=== PATIENT | female | born 1970 | race Caucasian/White ===

== ENCOUNTER 2019-05-03 11:34 | Emergency (ER) | payer OTHER ==
[2019-05-03 11:56] LABS: ABSOLUTE EOSINOPHILS # (AUTO) 0.1 10^3/uL (0.0-0.6); ABSOLUTE LYMPHOCYTES (AUTO) 2.2 10^3/uL (0.5-4.7); ABSOLUTE MONOCYTES (AUTO) 0.3 10^3/uL (0.1-1.4); ABSOLUTE NEUT (AUTO) 3.2 10^3/uL (1.7-8.2); BASOPHILS % (AUTO) 0.5 % (0-2); HEMATOCRIT 31.7 % (36.0-47.0); HEMOGLOBIN 10.1 g/dL (12.0-15.5); LYMPHOCYTES % (AUTO) 37.6 % (13-45); MEAN CORPUSCULAR HEMOGLOBIN 24.3 pg (27.0-33.4); MEAN CORPUSCULAR HGB CONC 31.9 g/dL (32.0-36.0); MEAN CORPUSCULAR VOLUME 76 fl (80-97); MONOCYTES % (AUTO) 5.3 % (3-13); PLATELET COUNT 268 10^3/uL (150-450); RED BLOOD COUNT 4.16 10^6/uL (3.72-5.28); RED CELL DISTRIBUTION WIDTH 17.3 % (11.5-14.0); SEGMENTED NEUTROPHILS % (AUTO) 54.6 % (42-78); TOTAL CELLS COUNTED % (AUTO) 100 %; WHITE BLOOD COUNT 5.8 10^3/uL (4.0-10.5)
[2019-05-03 11:58] LABS: APPEARANCE,URINE CLEAR; BILIRUBIN,URINE NEGATIVE (NEGATIVE); COLOR,URINE YELLOW; GLUCOSE, URINE 50 mg/dL (NEGATIVE); KETONES,URINE NEGATIVE (NEGATIVE); LEUKOCYTE ESTERASE,URINE NEGATIVE (NEGATIVE); NITRITE,URINE NEGATIVE (NEGATIVE); PROTEIN,URINE NEGATIVE (NEGATIVE); URINE SPECIFIC GRAVITY 1.021; UROBILINOGEN,URINE NEGATIVE mg/dL (<2.0)
--- NOTE | 2019-05-03 12:06 | ER Document Report ---
ED General - General Chief Complaint: Altered Mental Status Stated Complaint: UNRESPONSIVE Time Seen by Provider: 05/03/19 11:56 Primary Care Provider: SHERRY LEACH MD [ACTIVE STAFF] - 05/03/19 7:00 am (Call to establish primary doctor here, first available appointment to follow-up anemia work-up and diabetes management and pain management.) EDGAR FUENTES MD [COMMUNITY BASED STAFF] - Follow up as needed (Can try either 1 of these numbers for primary care establishment.) Information source: Patient, Relative - Cannot obtain history due to: Altered mental status - [facility] Notes: bibems after sudha rodriguez he was trying to help her to the toilet when she'd seemed unresponsive for a few minutes and then very "out of it". it was unusual she'd need help out of bed he says but she told him she felt weak. he helped her up they walked together and both "stumbled once into bathroom". says she didn't hit her head or anywhere else, but then he got her on the toilet and she was just slumped over. breathing on her own but wouldn't respond to him. both ultimately deny any preceding drug subtance use. she has h/o remote CVA w/ residual hemiparesis, dysarthria. they recently moved here from [place]. she is prescrived vicodin from provider there but says she "doesn't use often". not too long ago actually went to [place] to see the doctor (hasn't est one here yet, since likes that a lot). RNs found a cut straw on her person when gett ing her in gown; they were concerned might be used in snorting substances, says she cuts long straws b/c sometimes clumsy w/ right hand so cuts straws down. pt says she doens' thave any current pain. she remembers wanting to go to [facility] [place]. doens't remember feeling badly.they deny any other history of (near) syncope. no CV disease known. no recent vomiting. has had some loose stools. no melana or blood. no other pain that's new besides chronic back pain. no f/c/s. EMS reported glu wnl vs wnl. drowsy followin commands. - Related Data Allergies/Adverse Reactions: No Known Allergies Allergy (Unverified 05/05/19 12:07) Home Medications: Vicodin 5-300mg Daily. Lisinopril 20mg Daily. HCTZ 12.5mg Daily Past Medical History - Social History Smoking Status: Unknown if Ever Smoked Family History: Reviewed & Not Pertinent Patient has suicidal ideation: No Patient has homicidal ideation: No Review of Systems - Review of Systems Constitutional: See HPI EENT: No symptoms reported Cardiovascular: No symptoms reported Respiratory: No symptoms reported Gastrointestinal: See HPI, Diarrhea. denies: Abdomen distended, Abdominal pain Genitourinary: No symptoms reported Female Genitourinary: No symptoms reported Musculoskeletal: No symptoms reported Skin: No symptoms reported Hematologic/Lymphatic: No symptoms reported Neurological/Psychological: No symptoms reported Physical Exam - Vital signs Vitals: Resp BP 13 122/83 05/03/19 11:36 05/03/19 11:36 - Notes Notes: on arrival arousable to voice, follows commands moving all ext no facial palsy. mild dysarthria clears w/in hour of arrival. no pronator drift, equal automation technologist. stregth hip flexors 5/5, ankle dorsi-plantar flex 5/5, automation technologist 5/5. sensation coordination all grossly intact. Course - Re-evaluation Re-evalutation: 05/11/19 14:55 pt more and more alert. gave 2 l iv LR. all labs wnl. imaging reviewed wnl. initially opioid screen (-), after d/c returned unconfirmed (+)...but during stay was unconfirmed + for amphetamines. no miosis on exam, i still suspected opiate narcosis though agusto initial (-) screen given story. cont to explain some worrisome aspects e.g. straw, and also says that this is usual for pt to sleep into late afternoon every day. I did suspect possible downside of amphetamines. i spoke w/ both of them about opiod/amphet issues. i offered some programs here if she felt it was interfereing w/ her ability to function well. she said it's just been a lot since moving she misses co. promises she'll est pcp here. has insurance as now retired [employer]. observed pt til able to ambulate w/ and ok for d/c. discussed also narcan as safety backup if she thought this was in any way in setting of taking vicodin +/- more opiates from other prescribed or non-prescribed sources she cont to reassure that that's not case. I still offered we are always here to supply resources again b/c i'm worried it could be a problem since i;m seeing you here today. they understand. 05/11/19 14:56 05/11/19 14:57 - Vital Signs Vital signs: Temp Pulse Resp BP Pulse Ox 97.6 F 78 10 L 171/94 H 98 05/03/19 17:05 05/03/19 15:20 05/03/19 17:05 05/03/19 17:05 05/03/19 17:05 - Laboratory Result Diagrams: 05/03/19 11:37 05/03/19 11:37 Laboratory results interpreted by me: 05/03/19 05/03/19 05/03/19 11:37 11:37 11:37 Hgb 10.1 L Hct 31.7 L MCV 76 L MCH 24.3 L MCHC 31.9 L RDW 17.3 H POC Glucose Albumin 3.3 L Urine Glucose (UA) 50 H 05/03/19 11:40 Hgb Hct MCV MCH MCHC RDW POC Glucose 119 H Albumin Urine Glucose (UA) - EKG Interpretation by Me Additional EKG results interpreted by me: 05/03/19 12:05 EKG today is sinus, regular rate 63. Computer corrected QT at 488, my calculation is at 490. No ST elevations depressions QRS is with in normal limits no hypertrophy axis within normal limits Discharge - Discharge Clinical Impression: Syncope and collapse, Anemia Condition: Fair Disposition: HOME, SELF-CARE Additional Instructions: Today your blood count or your hemoglobin was 10.7. Since you have had iron deficiency anemia in the past I will prescribe an iron supplement for you to start taking today but is very important you call a local physician or provider to establish primary care and to follow-up your anemia, your glucose and nicole betes management, pain management and preventative care so someone knows you here locally. I think this is the reason you passed out given it occurred when he jumped up fast and now you are feeling much better after fluids. Your blood count is not low enough to give you a transfusion it should start to get better with iron supplementation but again you need to ensure that this is only an issue with needing some iron with your primary care doctor. Return immediately if you have any blood or black stools any passing out or near passing out, abdominal pain or other pain, or other concerns. Prescriptions: Ferrous Sulfate [Slow Release Iron] 140 mg PO BID 14 Days #28 tablet.er Referrals: SHERRY LEACH MD [ACTIVE STAFF] - 05/03/19 7:00 am (Call to establish primary doctor here, first available appointment to follow-up anemia work-up and diabetes management and pain management.) EDGAR FUENTES MD [COMMUNITY BASED STAFF] - Follow up as needed (Can try either 1 of these numbers for primary care establishment.)
[2019-05-03] MEDS ORDERED: NORMAL SALINE 1000 ML 1,000 ML IV ONE (12:08)
[2019-05-03] MEDS ORDERED: RINGERS SOLUTION,LACTATED 1,000 ML IV ONE (12:09)
[2019-05-03 12:14] LABS: ALBUMIN 3.3 g/dL (3.5-5.0); ALKALINE PHOSPHATASE 73 U/L (38-126); ANION GAP 11 (5-19); ASPARTATE AMINO TRANSFERASE 24 U/L (14-36); BILIRUBIN,DIRECT 0.2 mg/dL (0.0-0.4); BILIRUBIN,TOTAL 0.3 mg/dL (0.2-1.3); BLOOD UREA NITROGEN 18 mg/dL (7-20); CALCIUM 9.1 mg/dL (8.4-10.2); CARBON DIOXIDE 22 mmol/L (22-30); CHLORIDE 107 mmol/L (98-107); GLUCOSE 105 mg/dL (75-110); POTASSIUM 3.7 mmol/L (3.6-5.0); TOTAL PROTEIN 6.5 g/dL (6.3-8.2)
[2019-05-03 12:19] LABS: URINE BARBITURATES SCREEN NEGATIVE; URINE BENZODIAZEPINES SCREEN NEGATIVE; URINE COCAINE SCREEN NEGATIVE; URINE MARIJUANA (THC) SCREEN NEGATIVE; URINE METHADONE SCREEN NEGATIVE; URINE PHENCYCLIDINE SCREEN NEGATIVE
[2019-05-03 17:29] VITALS: BP 171/94
--- NOTE | 2019-05-03 23:45 | EKG REPORT ---
SEVERITY:- ABNORMAL ECG - SINUS RHYTHM BORDERLINE PROLONGED QT INTERVAL : Confirmed by: Arya Souza 03-May-2019 23:44:55
== END 2019-05-03 17:29 | disposition home or self-care (01) ==
LOC: ER 11:34 → EDBD 11:34 → ER 17:29
DX: R55 Syncope and collapse (principal); D64.9 Anemia, unspecified; R19.7 Diarrhea, unspecified; I69.359 Hemiplegia and hemiparesis following cerebral infarction affecting unspecified side; I69.322 Dysarthria following cerebral infarction; M54.9 Dorsalgia, unspecified; G89.29 Other chronic pain; Z79.899 Other long term (current) drug therapy
CPT/HCPCS: 93005; 99285; 96360; 86900; 86901; 36415; 86850; 82962; 83690; 85025; 80053; 81001; 80307; 93010; J7030; J7120

== ENCOUNTER 2019-05-16 22:14 | Emergency (ER) | payer OTHER ==
[2019-05-16] MEDS ORDERED: NORMAL SALINE 1000 ML 1,000 ML IV ONE (22:54)
[2019-05-16] MEDS ORDERED: MECLIZINE HCL 25 MG TABLET PO ONE (22:54)
[2019-05-16] MEDS ORDERED: ONDANSETRON HCL INJ/PF 4 MG/2 ML SDV IV ONE (22:54)
--- NOTE | 2019-05-16 22:57 | ER Document Report ---
ED General - General Chief Complaint: General Weakness Stated Complaint: DIZZY,WEAKNESS,NOT EATING WELL,VOMITING Time Seen by Provider: 05/16/19 22:46 Notes: Patient is a 49-year-old female that comes emergency department for chief complaint of symptoms for a week where she feels dizziness, generalized weakness, she states 2 days ago she was vomiting, today she has vomiting again, she states she has become so weak she cannot get up. She states when she stands up she is very unsteady on her feet and she feels like she is spinning around. She reports a lot of nausea currently, she states now she also has some abdominal pain. She has had headaches intermittently as well. She denies fever, chest pain, difficulty breathing, focal numbness or weakness, visual changes. She does have a history of CVA with chronic right-sided numbness, h ypertension, type 2 diabetes, hypothyroidism. Patient states she was evaluated just over a week ago here after she passed out on the toilet and she was discharged on iron but has not begun taking this yet. is at bedside. - Related Data Allergies/Adverse Reactions: tramadol Allergy (Verified 05/16/19 22:50) Home Medications: Trulicity. HCTZ Past Medical History - General Information source: Patient - Social History Smoking Status: Never Smoker Frequency of alcohol use: None Lives with: Family Family History: Reviewed & Not Pertinent Patient has suicidal ideation: No Patient has homicidal ideation: No - Past Medical History Cardiac Medical History: Reports: Hx Hypertension Neurological Medical History: Reports: Hx Cerebrovascular Accident - chronic right sided numbness Endocrine Medical History: Reports: Hx Diabetes Mellitus Type 2 - Immunizations Immunizations up to date: Yes Hx Diphtheria, Pertussis, Tetanus Vaccination: Yes Review of Systems - Review of Systems Constitutional: See HPI EENT: No symptoms reported Cardiovascular: See HPI Respiratory: No symptoms reported Gastrointestinal: See HPI Genitourinary: No symptoms reported Female Genitourinary: No symptoms reported Musculoskeletal: No symptoms reported Skin: No symptoms reported Hematologic/Lymphatic: No symptoms reported Neurological/Psychological: See HPI Physical Exam - Vital signs Vitals: Temp Pulse Resp BP Pulse Ox 97.4 F 93 20 119/69 100 05/16/19 22:40 05/16/19 22:40 05/16/19 22:40 05/16/19 22:40 12/08/19 22:40 - Notes Notes: GENERAL: Patient resting with her eyes closed, slightly pale, appears slightly unwell HEAD: Normocephalic, atraumatic. EYES: Pupils equal, round, and reactive to light. Extraocular movements intact. Questionable minimal nystagmus horizontally to the left. ENT: Oral mucosa moist, tongue midline. Oropharynx unremarkable. Airway patent. NECK: Full range of motion. Supple. Trachea midline. LUNGS: Clear to auscultation bilaterally, no wheezes, rales, or rhonchi. No r espiratory distress. HEART: Regular rate and rhythm. No murmur ABDOMEN: Soft, non-tender. Non-distended. EXTREMITIES: Moves all 4 extremities spontaneously. No edema, normal radial and dorsalis pedis pulses bilaterally. No cyanosis. BACK: no cervical, thoracic, lumbar midline tenderness. No saddle anesthesia, normal distal neurovascular exam. Moves all extremities in full range of motion. NEUROLOGICAL: Alert and oriented x3. Normal speech. Cranial nerves II through XII grossly intact. Has difficulty getting up and appears off balance with some ataxia with movement and position changes. PSYCH: Normal affect, normal mood. SKIN: Pale Course - Re-evaluation Re-evalutation: Patient uncomfortable in appearance, laying quite still with her eyes closed shut tightly, appears to be unsteady and complains of dizziness when she atte mpts position changes. She describes herself is spinning around in a the [place], appears to have vertigo. Neurological exam is normal otherwise other than her chronic right-sided numbness. CAT scan of the head performed and without acute changes, shows some sinusitis. Patient does not have tender sinuses, congestion, fever. CBC shows no leukocytosis, borderline normocytic anemia, chemistry nonspecific except for mildly elevated creatinine at 1.52 and mildly elevated BUN. Patient has not provided a urine sample yet. She was given 2 L fluid boluses, afterwards with this, meclizine, and then small dose of Valium patient started to improve then symptoms completely resolved. Patient was able to open her eyes, stand up, and ambulate without any vertigo, nausea, dizziness. Patient is extremely grateful, states she feels much better and she wants to go home. Based on her evaluation I have a very low suspicion of acute intracranial pathology, I discussed treatment at home, expectations, close primary care follow-up for recheck of her kidney functioning, and I discussed return precautions. Patient states understanding and agreement with plan. Stable at time of discharge. - Vital Signs Vital signs: Temp Pulse Resp BP Pulse Ox 98.2 F 93 11 L 122/74 98 05/17/19 03:01 05/16/19 22:40 05/17/19 03:01 05/17/19 03:01 05/17/19 03:01 - Laboratory Result Diagrams: 05/16/19 23:48 05/16/19 23:48 Laboratory results interpreted by me: 05/16/19 05/16/19 05/17/19 23:48 23:48 02:51 Hgb 11.9 L MCV 76 L MCH 24.7 L RDW 17.5 H Sodium 135.2 L BUN 44 H Creatinine 1.52 H Est GFR ( Amer) 44 L Est GFR (MDRD) Non-Af 36 L Urine Protein 30 H Urine Urobilinogen 2.0 H Ur Leukocyte Esterase MODERATE H - EKG Interpretation by Me Additional EKG results interpreted by me: EKG shows sinus rhythm at a rate of 80, QTC of 462, normal axis, no T wave inversions or ST segment changes in consecutive leads. Possibly mildly peaked T waves. Discharge - Discharge Clinical Impression: Vertigo, Dizziness, Dehydration Vomiting Qualifiers: Vomiting type: unspecified Vomiting Intractability: non-intractable Nausea presence: with nausea Qualified Code(s): R11.2 - Nausea with vomiting, unspecified Condition: Stable Disposition: HOME, SELF-CARE Additional Instructions: Your evaluation is most consistent with labyrinthitis, an inner ear problem causing vertigo, dizziness, nausea. Take the meclizine as prescribed to completion. Take the diazepam as needed for vertigo, take Zofran if needed for nausea. Symptoms should gradually resolve. Your evaluation also shows dehydration, have your kidney functioning rechecked with your primary care provider for monitoring. Return if you worsen including uncontrolled vomiting, severe headache, fever, or any other concerning or worsening symptoms. Prescriptions: Meclizine HCl [Antivert 25 mg Tablet] 25 mg PO TID PRN #21 tablet PRN Reason: Diazepam [Valium 5 mg Tablet] 5 mg PO TID PRN #12 tablet PRN Reason: Ondansetron [Zofran Odt 4 mg Tablet] 1 - 2 tab PO Q4H PRN #15 tab.rapdis PRN Reason: For Nausea/Vomiting
--- NOTE | 2019-05-16 23:39 | RADIOLOGY REPORT (SQ) ---
EXAM DESCRIPTION: XR CHEST 1 VIEW COMPLETED DATE/TME: 05/16/2019 22:54 CLINICAL HISTORY: 49 years, Female, weakness COMPARISON: None. NUMBER OF VIEWS: TECHNIQUE: LIMITATIONS: None. FINDINGS: No evidence of pulmonary infiltrate or pleural effusion. The heart and mediastinum are unremarkable. Pulmonary vascularity appears normal. IMPRESSION: No acute finding. copyright 2010 [email or web address]- All Rights Reserved
--- NOTE | 2019-05-16 23:41 | EKG REPORT ---
SEVERITY:- OTHERWISE NORMAL ECG - SINUS RHYTHM LOW VOLTAGE IN FRONTAL LEADS : Confirmed by: Violetta Erazo MD 16-May-2019 23:40:53
[2019-05-17 00:24] LABS: ABSOLUTE EOSINOPHILS # (AUTO) 0.2 10^3/uL (0.0-0.6); ABSOLUTE LYMPHOCYTES (AUTO) 1.9 10^3/uL (0.5-4.7); ABSOLUTE MONOCYTES (AUTO) 0.4 10^3/uL (0.1-1.4); ABSOLUTE NEUT (AUTO) 5.2 10^3/uL (1.7-8.2); BASOPHILS % (AUTO) 0.5 % (0-2); HEMATOCRIT 36.9 % (36.0-47.0); HEMOGLOBIN 11.9 g/dL (12.0-15.5); LYMPHOCYTES % (AUTO) 24.8 % (13-45); MEAN CORPUSCULAR HEMOGLOBIN 24.7 pg (27.0-33.4); MEAN CORPUSCULAR HGB CONC 32.4 g/dL (32.0-36.0); MEAN CORPUSCULAR VOLUME 76 fl (80-97); MONOCYTES % (AUTO) 5.5 % (3-13); PLATELET COUNT 279 10^3/uL (150-450); RED BLOOD COUNT 4.83 10^6/uL (3.72-5.28); RED CELL DISTRIBUTION WIDTH 17.5 % (11.5-14.0); SEGMENTED NEUTROPHILS % (AUTO) 66.2 % (42-78); TOTAL CELLS COUNTED % (AUTO) 100 %; WHITE BLOOD COUNT 7.8 10^3/uL (4.0-10.5)
[2019-05-17 00:25] LABS: ALBUMIN 3.9 g/dL (3.5-5.0); ALKALINE PHOSPHATASE 82 U/L (38-126); ANION GAP 12 (5-19); ASPARTATE AMINO TRANSFERASE 22 U/L (14-36); BILIRUBIN,DIRECT 0.2 mg/dL (0.0-0.4); BILIRUBIN,TOTAL 0.4 mg/dL (0.2-1.3); BLOOD UREA NITROGEN 44 mg/dL (7-20); CALCIUM 9.8 mg/dL (8.4-10.2); CARBON DIOXIDE 22 mmol/L (22-30); CHLORIDE 101 mmol/L (98-107); GLUCOSE 108 mg/dL (75-110); POTASSIUM 4.5 mmol/L (3.6-5.0); TOTAL PROTEIN 7.5 g/dL (6.3-8.2)
[2019-05-17] MEDS ORDERED: NORMAL SALINE 1000 ML 1,000 ML IV ONE (00:30)
--- NOTE | 2019-05-17 00:36 | RADIOLOGY REPORT (SQ) ---
CT HEAD WITHOUT IV CONTRAST EXAM DATE: 05/16/2019 10:54 PM GROCERY CHECKER HISTORY: Headache, vomiting, ataxia, dizzy. COMPARISON: None. TECHNIQUE: CT scan of the brain without IV contrast. This exam was performed according to our departmental dose-optimization program, which includes automated exposure control, adjustment of the mA and/or kV according to patient size and/or use of iterative reconstruction technique. FINDINGS: The ventricles, cisterns, and sulci are age-appropriate. No evidence of acute infarction, intracranial hemorrhage, extra-axial fluid collection, or midline shift. Mild sinus mucosal disease in the left sphenoid sinus and bilateral maxillary sinuses. No depressed skull fracture. IMPRESSION: 1. No acute intracranial findings. 2. Sinus mucosal inflammatory disease.
[2019-05-17] MEDS ORDERED: MECLIZINE HCL 25 MG TABLET PO ONE (01:17)
[2019-05-17] MEDS ORDERED: DIAZEPAM 5 MG TABLET PO ONE (01:18)
[2019-05-17 03:33] LABS: APPEARANCE,URINE SLIGHTLY-CLOUDY; BILIRUBIN,URINE NEGATIVE (NEGATIVE); COLOR,URINE YELLOW; GLUCOSE, URINE NEGATIVE (NEGATIVE); KETONES,URINE NEGATIVE (NEGATIVE); LEUKOCYTE ESTERASE,URINE MODERATE (NEGATIVE); NITRITE,URINE NEGATIVE (NEGATIVE); PROTEIN,URINE 30 mg/dL (NEGATIVE); URINE SPECIFIC GRAVITY 1.016
[2019-05-17 04:01] VITALS: BP 122/74
== END 2019-05-17 04:01 | disposition home or self-care (01) ==
LOC: ER 22:14
DX: R42 Dizziness and giddiness (principal); R53.83 Other fatigue; E86.0 Dehydration; R11.2 Nausea with vomiting, unspecified; I10 Essential (primary) hypertension; I69.998 Other sequelae following unspecified cerebrovascular disease; R20.0 Anesthesia of skin
CPT/HCPCS: 93005; 99284; 96361; 96374; 36415; 87086; 82962; 83690; 85025; 80053; 81001; 71045; 70450; 93010; J2405; J7030 ×2; 87088

== ENCOUNTER 2020-05-27 10:18 | Emergency (ER) | payer OTHER ==
[2020-05-27] MEDS ORDERED: ONDANSETRON HCL INJ/PF 4 MG/2 ML SDV IV ONE (11:27)
[2020-05-27] MEDS ORDERED: MECLIZINE HCL 25 MG TABLET PO ONE (11:27)
--- NOTE | 2020-05-27 11:29 | ER Document Report ---
ED Medical Screen (RME) - General Stated Complaint: DIZZINESS Time Seen by Provider: 05/27/20 11:23 Information source: Patient Notes: Patient presents complaining of feeling sick for the past week. Patient states she is had dizziness for the past week that she feels is similar to vertigo. Patient reports nausea with vomiting daily. Last emesis was yesterday. Patient denies any headache, chest pain or shortness of breath. Patient has underlying history of diabetes, hypertension and previous CVA with right-sided residual symptoms. I have greeted and performed a rapid initial assessment of this patient. A comprehensive ED assessment and evaluation of the patient, analysis of test results and completion of the medical decision making process will be conducted by additional ED providers. - Related Data Allergies/Adverse Reactions: tramadol Allergy (Verified 05/27/20 11:24) Past Medical History - Past Medical History Cardiac Medical History: Reports: Hx Hypertension Neurological Medical History: Reports: Hx Cerebrovascular Accident - chronic right sided numbness Endocrine Medical History: Reports: Hx Diabetes Mellitus Type 2 - Immunizations Immunizations up to date: Yes Hx Diphtheria, Pertussis, Tetanus Vaccination: Yes Physical Exam - Vital signs Vitals: Temp Pulse Resp BP Pulse Ox 98.0 F 91 16 101/62 100 05/27/20 10:31 05/27/20 10:31 05/27/20 10:31 05/27/20 10:31 05/27/20 10:31 - Respiratory Respiratory status: No respiratory distress Breath sounds: Normal - Cardiovascular Rhythm: Regular Heart sounds: S1 appreciated, S2 appreciated Course - Vital Signs Vital signs: Temp Pulse Resp BP Pulse Ox 98.0 F 91 16 101/62 100 05/27/20 10:31 05/27/20 10:31 05/27/20 10:31 05/27/20 10:31 05/27/20 10:31
[2020-05-27 11:51] LABS: ABSOLUTE EOSINOPHILS # (AUTO) 0.2 10^3/uL (0.0-0.6); ABSOLUTE LYMPHOCYTES (AUTO) 1.5 10^3/uL (0.5-4.7); ABSOLUTE MONOCYTES (AUTO) 0.4 10^3/uL (0.1-1.4); ABSOLUTE NEUT (AUTO) 4.1 10^3/uL (1.7-8.2); BASOPHILS % (AUTO) 0.6 % (0-2); EOSINOPHILS % (AUTO) 2.9 % (0-6); HEMATOCRIT 40.2 % (36.0-47.0); HEMOGLOBIN 13.1 g/dL (12.0-15.5); LYMPHOCYTES % (AUTO) 24.2 % (13-45); MEAN CORPUSCULAR HEMOGLOBIN 27.4 pg (27.0-33.4); MEAN CORPUSCULAR HGB CONC 32.5 g/dL (32.0-36.0); MEAN CORPUSCULAR VOLUME 84 fl (80-97); MONOCYTES % (AUTO) 6.1 % (3-13); PLATELET COUNT 256 10^3/uL (150-450); RED BLOOD COUNT 4.78 10^6/uL (3.72-5.28); SEGMENTED NEUTROPHILS % (AUTO) 66.2 % (42-78); TOTAL CELLS COUNTED % (AUTO) 100 %; WHITE BLOOD COUNT 6.1 10^3/uL (4.0-10.5)
[2020-05-27 12:14] LABS: ALBUMIN 4.3 g/dL (3.5-5.0); ALKALINE PHOSPHATASE 108 U/L (38-126); ANION GAP 11 (5-19); ASPARTATE AMINO TRANSFERASE 25 U/L (14-36); BILIRUBIN,DIRECT 0.2 mg/dL (0.0-0.4); BILIRUBIN,TOTAL 0.5 mg/dL (0.2-1.3); BLOOD UREA NITROGEN 34 mg/dL (7-20); CALCIUM 9.9 mg/dL (8.4-10.2); CARBON DIOXIDE 26 mmol/L (22-30); CHLORIDE 102 mmol/L (98-107); GLUCOSE 80 mg/dL (75-110); POTASSIUM 4.2 mmol/L (3.6-5.0)
[2020-05-27] MEDS ORDERED: NORMAL SALINE 500 ML IV ONE (12:46)
--- NOTE | 2020-05-27 15:01 | RADIOLOGY REPORT (SQ) ---
EXAM DESCRIPTION: CT HEAD WITHOUT IMAGES COMPLETED DATE/TIME: 05/27/2020 11:34 am REASON FOR STUDY: vertigo COMPARISON: 05/17/2019. TECHNIQUE: Axial images acquired through the brain without intravenous contrast. Images reviewed wi th bone, brain and subdural windows. Additional sagittal and coronal reconstructions were generated. Images stored on PACS. All CT scanners at this facility use dose modulation, iterative reconstruction, and/or weight based d osing when appropriate to reduce radiation dose to as low as reasonably achievable (ALARA). [facility]: Dose Right [facility]: CareDose [facility]: Dose Right [facility]: Teradose 4D [facility]: Smart [employer] RADIATION DOSE: CT Rad equipment meets quality standard of care and radiation dose reduction techniq ues were employed. CTDIvol: 48.8 mGy. DLP: 909 mGy-cm. mGy. LIMITATIONS: None. FINDINGS: VENTRICLES: Normal size and contour. CEREBRUM: No masses. No hemorrhage. No midline shift. No evidence for acute infarction. Focal hypo attenuation in the right frontal lobe has appearance suggestive of a small chronic infarct. This is unchanged from prior. No new regions of hypodensity identified. CEREBELLUM: No masses. No hemorrhage. No alteration of density. No evidence for acute infarction. EXTRAAXIAL SPACES: No fluid collections. No masses. ORBITS AND GLOBE: No intra- or extraconal masses. Normal contour of globe without masses. CALVARIUM: No fracture. PARANASAL SINUSES: Opacification of the left sphenoid sinus is unchanged. Mild mucosal thickening in the inferior maxillary sinuses is also similar to prior. SOFT TISSUES: No mass or hematoma. OTHER: No other significant finding. IMPRESSION: 1. No acute intracranial abnormality on noncontrast CT. 2. Stable chronic small infarct right frontal lobe. EVIDENCE OF ACUTE STROKE: NO. COMMENT: Quality ID # [id number]: Final reports with documentation of one or more dose reduction techniques (e.g., Automated exposure control, adjustment of the mA and/or kV according to patient size, use of iterative reconstruction technique) TECHNICAL DOCUMENTATION: JOB ID: [id number] 2010 [employer]- All Rights Reserved Reading location - IP/workstation name: [email or web address]
--- NOTE | 2020-05-27 15:12 | ER Document Report ---
ED General - General Chief Complaint: Dizziness Stated Complaint: DIZZINESS Time Seen by Provider: 05/27/20 11:23 - HPI Notes: Chief complaint: Vertigo History of present illness: 50-year-old female currently with no primary care physician seen now for evaluation of recurrent vertigo. Patient says she was previously treated here a number of months ago with Antivert after negative work-up in the emergency department. At the time the medicine worked well for her. She has had a recurrence of positional vertigo since last night associated with several episodes of nausea and vomiting. She denies any visual impairment, headache, difficulty with speech or swallowing or any new motor symptoms. We note that the patient has had a history of an old stroke a number of years ago and had some minimal impairment of motor function of right upper and lower extremity residual from this. She is able to ambulate without an assistive device at baseline. - Related Data Allergies/Adverse Reactions: tramadol Allergy (Verified 05/27/20 11:24) Past Medical History - General Information source: Patient - Social History Smoking Status: Former Smoker Frequency of alcohol use: None Drug Abuse: None Lives with: Family Family History: Reviewed & Not Pertinent - Past Medical History Cardiac Medical History: Reports: Hx Hypertension Neurological Medical History: Reports: Hx Cerebrovascular Accident - chronic right sided numbness Endocrine Medical History: Reports: Hx Diabetes Mellitus Type 2 - Immunizations Immunizations up to date: Yes Hx Diphtheria, Pertussis, Tetanus Vaccination: Yes Review of Systems - Review of Systems Notes: Constitutional: Negative for fever. HENT: Negative for sore throat. No hearing impairment or tinnitus. No ear pain. Eyes: Negative for visual changes. Cardiovascular: Negative for chest pain. Respiratory: Negative for shortness of breath. Gastrointestinal: As per HPI. Genitourinary: Negative for dysuria. Musculoskeletal: Negative for back pain. Skin: Negative for rash. Neurological: As per HPI. 10 point ROS negative except as marked above and in HPI. Physical Exam - Vital signs Vitals: Temp Pulse Resp BP Pulse Ox 98.0 F 91 16 101/62 100 05/27/20 10:31 05/27/20 10:31 05/27/20 10:31 05/27/20 10:31 05/27/20 10:31 - Notes Notes: GENERAL: Well-developed well-nourished appearing in no acute distress. SKIN: Good turgor no rashes. HEAD: Normocephalic atraumatic. EYES: PERRLA. Mild horizontal nystagmus on lateral gaze bilaterally. Conjunctivae and sclerae clear. EARS: CANALS AND TMS CLEAR. NOSE: CLEAR. MOUTH: Moist mucosa. Good dentition. No stridor or edema. No drooling. NECK: Supple. No masses or thyromegaly. No adenopathy. Carotids 2+ without bruits. No JVD. BACK: Symmetrical without tenderness. CHEST: Respirations unlabored. Breath sounds clear and symmetrical. HEART: Regular rhythm. No murmur gallop or rub. ABDOMEN: Soft nontender without masses, organomegaly or rebound. Bowel sounds normally active. No bruits. GENITALIA: Deferred. EXTREMITIES: No edema. No calf tenderness. Cap refill less than 1.5 seconds. Dorsalis pedis and posterior tibial pulses 3+ and symmetrical. NEUROLOGICAL: GCS 15. Alert and oriented x3. Fluent speech. Cranial nerves II through XII intact. Sensorimotor and cerebellar normal. Normal tone. PSYCHIATRIC: Appropriate affect. Course - Re-evaluation Re-evalutation: 05/27/20 15:21 CT scan showed no acute changes. She has no new focal neurologic findings. She is afebrile here. 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 Symptomatically improved after IV fluids and IV Zofran. Appears stable for outpatient follow-up with PMD. Findings, clinical impression and plan of treatment have been discussed with patient/family. Understanding of current findings and recommendations has been acknowledged by them and there is agreement regarding disposition and follow-up. - Vital Signs Vital signs: Temp Pulse Resp BP Pulse Ox 98.0 F 91 16 101/62 100 05/27/20 10:31 05/27/20 10:31 05/27/20 10:31 05/27/20 10:31 05/27/20 10:31 - Laboratory Results Result Diagrams: 05/27/20 11:40 05/27/20 11:40 Laboratory Results Interpreted: 05/27/20 05/27/20 11:40 11:40 RDW 15.0 H BUN 34 H Critical Laboratory Results Reviewed: Yes Attending or Supervising Physician who Reviewed Labs: FABIANA WALLACE - Radiology Results Critical Radiology Results Reviewed: No Critical Results Discharge - Discharge Clinical Impression: Vertigo Condition: Stable Disposition: HOME, SELF-CARE Instructions: Vertigo ([facility]), Antinausea Medication ([facility]) Prescriptions: Diazepam [Valium 2 mg Tablet] 2 mg PO TID 5 Days #15 tablet Ondansetron [Zofran Odt 4 mg Tablet] 1 - 2 tab PO Q4H PRN #15 tab.rapdis PRN Reason: For Nausea/Vomiting Referrals: [facility] [Provider Group] - Follow up as needed
[2020-05-27 16:24] VITALS: BP 116/83
--- NOTE | 2020-05-27 17:21 | EKG REPORT ---
SEVERITY:- ABNORMAL ECG - SINUS RHYTHM ABNRM R PROG, CONSIDER ASMI OR LEAD PLACEMENT : Confirmed by: Violetta Erazo MD 27-May-2020 17:20:58
== END 2020-05-27 16:24 | disposition home or self-care (01) ==
LOC: ER 10:18
DX: R42 Dizziness and giddiness (principal); H55.00 Unspecified nystagmus; R11.2 Nausea with vomiting, unspecified; I69.398 Other sequelae of cerebral infarction; R20.0 Anesthesia of skin; I10 Essential (primary) hypertension; E11.9 Type 2 diabetes mellitus without complications; Z88.6 Allergy status to analgesic agent; Z87.891 Personal history of nicotine dependence
CPT/HCPCS: 93005; 99285; 96361; 96374; 36415; 83735; 85025; 80053; 70450; 93010; J2405; J7040

== ENCOUNTER 2020-06-06 19:11 | Emergency (ER) | payer OTHER ==
--- NOTE | 2020-06-06 20:30 | ER Document Report ---
ED General - General Chief Complaint: Vertigo Stated Complaint: DIZZINESS,NAUSEA,WEAKNESS Time Seen by Provider: 06/06/20 20:29 - HPI Notes: 50-year-old female presents with chief complaint of "something's wrong with me", patient then states "I don't know", then states "I'm thirsty". On further discussion patient states that she has not had any appetite for the past 1 week, states that she will feel nauseous and vomit if she attempts to eat something, though notes she does feel hungry. She reports dizziness when she stands, states that it feels like the room is going around and around. She states that "the meds make me feel better", she is referencing the diazepam that was prescribed at a recent emergency department visit when she was diagnosed with vertigo. She also takes Adderall and hydrocodone, states that she is on hydrocodone due to chronic left leg pain from a previous stroke. She states that she also takes lisinopril, Lantus and weekly Trulicity. - Related Data Allergies/Adverse Reactions: tramadol Allergy (Verified 05/27/20 11:24) Past Medical History - General Information source: Patient - Social History Smoking Status: Unknown if Ever Smoked Family History: Reviewed & Not Pertinent - Past Medical History Cardiac Medical History: Reports: Hx Hypertension Neurological Medical History: Reports: Hx Cerebrovascular Accident - chronic right sided numbness Endocrine Medical History: Reports: Hx Diabetes Mellitus Type 2 - Immunizations Immunizations up to date: Yes Hx Diphtheria, Pertussis, Tetanus Vaccination: Yes Review of Systems - Review of Systems Constitutional: denies: See HPI, Fever EENT: denies: Double vision Cardiovascular: denies: Chest pain Respiratory: denies: Short of breath Gastrointestinal: See HPI Genitourinary: No symptoms reported Female Genitourinary: No symptoms reported Musculoskeletal: No symptoms reported Skin: No symptoms reported Hematologic/Lymphatic: No symptoms reported Neurological/Psychological: denies: Headaches Physical Exam - Vital signs Vitals: Temp Pulse Resp BP Pulse Ox 97.8 F 100 20 85/58 L 92 06/06/20 19:15 06/06/20 19:15 06/06/20 19:15 06/06/20 19:15 06/06/20 19:15 - General General appearance: Alert In distress: None - HEENT Head: Normocephalic, Atraumatic Extraocular movements intact: Yes Pupils: PERRL - Respiratory Breath sounds: Normal - Cardiovascular Rhythm: Regular Heart sounds: Normal auscultation Normal capillary refill: Yes - Abdominal Distension: No distension Bowel sounds: Normal Tenderness: Nontender - Extremities General lower extremity: No: Edema - Neurological Neuro grossly intact: Yes Cognition: Normal Orientation: AAOx4 Speech: Normal Cranial nerves: Normal Motor strength normal: LUE, RUE, LLE, RLE 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 intake x1 week. On exam she is alert, mentating appropriately. She is afebrile, however blood pressure is on the low side, suspect that this is likely due to her poor nutritional intake, no obvious infectious-like symptoms, will start with 1 L of fluid. She has no gross focal neuro deficits, no nystagmus. I reviewed her ED visit from [address] head. Given her reassuring exam, do not feel that another CT head is indicated at this time. Abdomen is soft without focal area of tenderness. 06/07/20 02:08 No leukocytosis or left shift, no acute anemia. Slight elevation of potassium at 5.2 along with LIONEL, plan to recheck following fluids. LFTs, T bili and lipase within normal limits. Urine with bacteria however overall not very suggestive of UTI, sent for culture. UDS positive for opiates, amphetamines and benzodiazepines all which are on her medication list. EtOH negative. 06/07/20 02:09 Blood pressure has improved following fluids 06/07/20 04:13 Patient has tolerated p.o. A repeat BMP is still pending at this time. Patient signed out to Dr. Hernandez. Anticipate discharge home - Vital Signs Vital signs: Temp Pulse Resp BP Pulse Ox 98.8 F 69 11 L 103/79 100 06/06/20 20:31 06/06/20 22:00 06/07/20 00:45 06/07/20 02:15 06/07/20 02:15 - Laboratory Results Result Diagrams: 06/06/20 20:05 06/06/20 20:05 Laboratory Results Interpreted: 06/06/20 06/06/20 06/06/20 20:05 20:05 20:25 RDW 14.5 H Sodium 135.8 L Potassium 5.2 H Carbon Dioxide 20 L BUN 69 H Creatinine 1.30 H Est GFR ( Amer) 52 L Est GFR (MDRD) Non-Af 43 L Glucose 130 H POC Glucose 118 H Urine Ketones Urine Urobilinogen 06/06/20 21:06 RDW Sodium Potassium Carbon Dioxide BUN Creatinine Est GFR ( Amer) Est GFR (MDRD) Non-Af Glucose POC Glucose Urine Ketones TRACE H Urine Urobilinogen 2.0 H Critical Laboratory Results Reviewed: No Critical Results - Radiology Results Critical Radiology Results Reviewed: No Critical Results - EKG Interpretation by Me Additional EKG results interpreted by me: EKG is interpreted by me. Sinus rhythm, rate 86. Narrow QRS, QTC within normal limits. No ST segment elevation or depression. Low voltage limb leads. Discharge - Discharge Clinical Impression: LIONEL (acute kidney injury), Poor fluid intake Disposition: HOME, SELF-CARE Additional Instructions: Please follow-up with your primary care doctor. Be sure to drink plenty of fluids. Use Zofran as needed for nausea. Return to the emergency department for any concerning worsening symptoms. Prescriptions: Ondansetron [Zofran Odt 4 mg Tablet] 1 - 2 tab PO Q4H PRN #15 tab.rapdis PRN Reason: For Nausea/Vomiting
[2020-06-06] MEDS ORDERED: RINGERS SOLUTION,LACTATED 1,000 ML IV ONE (20:41)
--- NOTE | 2020-06-06 21:35 | EKG REPORT ---
SEVERITY:- OTHERWISE NORMAL ECG - SINUS RHYTHM BORDERLINE LEFT AXIS DEVIATION LOW VOLTAGE IN FRONTAL LEADS : Confirmed by: London Soria MD 06-Jun-2020 21:35:00
[2020-06-06 21:46] LABS: APPEARANCE,URINE SLIGHTLY-CLOUDY; BILIRUBIN,URINE NEGATIVE (NEGATIVE); COLOR,URINE YELLOW; GLUCOSE, URINE NEGATIVE (NEGATIVE); KETONES,URINE TRACE mg/dL (NEGATIVE); LEUKOCYTE ESTERASE,URINE NEGATIVE (NEGATIVE); NITRITE,URINE NEGATIVE (NEGATIVE); PROTEIN,URINE NEGATIVE (NEGATIVE); URINE SPECIFIC GRAVITY 1.019
[2020-06-06 22:28] LABS: URINE BARBITURATES SCREEN NEGATIVE; URINE COCAINE SCREEN NEGATIVE; URINE MARIJUANA (THC) SCREEN NEGATIVE; URINE METHADONE SCREEN NEGATIVE; URINE PHENCYCLIDINE SCREEN NEGATIVE
[2020-06-06 22:41] LABS: URINE BENZODIAZEPINES SCREEN UNCONFIRMED POSITIVE
[2020-06-07 01:01] LABS: ABSOLUTE EOSINOPHILS # (AUTO) 0.1 10^3/uL (0.0-0.6); ABSOLUTE LYMPHOCYTES (AUTO) 1.6 10^3/uL (0.5-4.7); ABSOLUTE MONOCYTES (AUTO) 0.5 10^3/uL (0.1-1.4); BASOPHILS % (AUTO) 0.5 % (0-2); EOSINOPHILS % (AUTO) 0.9 % (0-6); HEMATOCRIT 38.3 % (36.0-47.0); HEMOGLOBIN 12.7 g/dL (12.0-15.5); LYMPHOCYTES % (AUTO) 22.1 % (13-45); MEAN CORPUSCULAR HEMOGLOBIN 27.6 pg (27.0-33.4); MEAN CORPUSCULAR HGB CONC 33.3 g/dL (32.0-36.0); MEAN CORPUSCULAR VOLUME 83 fl (80-97); MONOCYTES % (AUTO) 6.6 % (3-13); PLATELET COUNT 276 10^3/uL (150-450); RED BLOOD COUNT 4.62 10^6/uL (3.72-5.28); RED CELL DISTRIBUTION WIDTH 14.5 % (11.5-14.0); SEGMENTED NEUTROPHILS % (AUTO) 69.9 % (42-78); TOTAL CELLS COUNTED % (AUTO) 100 %; WHITE BLOOD COUNT 7.2 10^3/uL (4.0-10.5)
[2020-06-07 01:12] LABS: ALBUMIN 3.9 g/dL (3.5-5.0); ALKALINE PHOSPHATASE 113 U/L (38-126); ANION GAP 13 (5-19); ASPARTATE AMINO TRANSFERASE 28 U/L (14-36); BILIRUBIN,DIRECT 0.3 mg/dL (0.0-0.4); BILIRUBIN,TOTAL 0.5 mg/dL (0.2-1.3); BLOOD UREA NITROGEN 69 mg/dL (7-20); CALCIUM 9.4 mg/dL (8.4-10.2); CARBON DIOXIDE 20 mmol/L (22-30); CHLORIDE 103 mmol/L (98-107); GLUCOSE 130 mg/dL (75-110); POTASSIUM 5.2 mmol/L (3.6-5.0); TOTAL PROTEIN 7.3 g/dL (6.3-8.2)
[2020-06-07 01:22] LABS: ALCOHOL < 10 mg/dL (NONE DETECTED)
[2020-06-07] MEDS ORDERED: RINGERS SOLUTION,LACTATED 1,000 ML IV ONE (01:26)
[2020-06-07 06:21] LABS: ANION GAP 5 (5-19); BLOOD UREA NITROGEN 51 mg/dL (7-20); CALCIUM 8.6 mg/dL (8.4-10.2); CARBON DIOXIDE 24 mmol/L (22-30); CHLORIDE 104 mmol/L (98-107); GLUCOSE 118 mg/dL (75-110); POTASSIUM 4.5 mmol/L (3.6-5.0)
--- NOTE | 2020-06-07 06:49 | ER Document Report ---
Doctor's Note Notes: 06/07/20 06:46 Patient was signed out to me pending repeat BMP. Repeat BMP is improved. Her creatinine is back to normal. Her GFR is also improved. I discussed all this with the patient. She ambulated to and from the bathroom by herself. Patient was told she needs to follow-up with her PCP. She was given strict return precautions. She was instructed to stay hydrated.
[2020-06-07 06:54] VITALS: BP 110/63
== END 2020-06-07 07:07 | disposition home or self-care (01) ==
LOC: ER 19:11
DX: N17.9 Acute kidney failure, unspecified (principal); R63.0 Anorexia; R11.2 Nausea with vomiting, unspecified; R42 Dizziness and giddiness; I10 Essential (primary) hypertension; E11.9 Type 2 diabetes mellitus without complications; I69.398 Other sequelae of cerebral infarction; M79.605 Pain in left leg; G89.29 Other chronic pain; Z79.891 Long term (current) use of opiate analgesic; Z79.899 Other long term (current) drug therapy; Z79.4 Long term (current) use of insulin; Z88.6 Allergy status to analgesic agent
CPT/HCPCS: 93005; 99284; 36415; 87086; 82962; 80307 ×3; 83690; 85025; 80048; 80053; 81001; 93010; G0480; J7120 ×2